=== PATIENT | male | born 1955 | race Caucasian/White ===

== ENCOUNTER 2016-03-17 11:05 | Emergency (ER) | payer MEDICAID ==
[2016-03-17 11:17] VITALS: BP 139/75
[2016-03-17 12:21] LABS: Hematocrit 49 % (42-52); Hemoglobin 17.1 g/dl (14.0-18.0); Mean Corpuscular HGB Conc 35 g/dl (31-36); Mean Corpuscular Hemoglobin 29 pg (27-31); Mean Corpuscular Volume 84 fL (80-94); Mean Platelet Volume 8 um3 (7.4-10.4); Red Blood Count 5.89 10^6/ul (4.0-5.4); Red Cell Distribution Width 13 % (10.5-15); White Blood Count 6.4 10^3/ul (3.5-10.8)
--- NOTE | 2016-03-17 12:29 | ED ---
Psychiatric Complaint - HPI Summary HPI Summary: Pt here with worsening depression. Stayed in house 4 days in a row last week. Moved here to [place] in October from [place] - was hoping for better support living here vs. [place] however feels he's not well received. Also feels political views of folks are intense - does not feel safe in the community sharing his views. H/o addiction to ETOH and cocaine. Moved here for a fresh start. Has not used since moving in October. Has tried local counselor but doesn't feel he connects with counselor. Would also like to find a support group to join for depression. Denies SI, HI. No physical complaints at this time. - History Of Current Complaint Chief Complaint: EDMentalHealth Time Seen by Provider: 03/17/16 11:25 Hx Obtained From: Patient - Allergies/Home Medications Allergies/Adverse Reactions: Allergies Allergy/AdvReac Type Severity Reaction Status Date / Time No Known Allergies Allergy Verified 03/17/16 11:16 PMH/Surg Hx/FS Hx/Imm Hx Previously Healthy: Yes Psychiatric History: Reports: Hx Anxiety - Dx at age 13, Hx Depression, Hx Inpatient Treatment - 5y and 10y ago, [place], [place], Dx Major depressive D/O, Hx Suicide Attempt - reported 2 attempt of running into traffic 5, resp. 10y ago Denies: Hx Eating Disorder, Hx of Violent Episodes Against Others Infectious Disease History: No Infectious Disease History: Denies: Traveled Outside the [place] in Last 30 Days - Social History Alcohol Use: Rare Substance Use Type: Reports: None Smoking Status (MU): Current Every Day Smoker Type: Cigarettes Review of Systems Negative: Fever, Chills Eyes: Negative ENT: Negative Negative: Chest Pain Negative: Shortness Of Breath Negative: Abdominal Pain, Vomiting, Diarrhea, Nausea Positive: no symptoms reported Musculoskeletal: Negative Skin: Negative Neurological: Negative Psychological: Other - see HPI All Other Systems Reviewed And Are Negative: Yes Physical Exam Triage Information Reviewed: Yes Vital Signs On Initial Exam: Initial Vitals Temp Pulse Resp BP Pulse Ox 97 F 89 18 139/75 97 03/17/16 11:11 03/17/16 11:11 03/17/16 11:11 03/17/16 11:11 03/17/16 11:11 Vital Signs Reviewed: Yes Appearance: Positive: Well-Appearing, No Pain Distress, Well-Nourished Skin: Positive: Warm, Dry Head/Face: Positive: Normal Head/Face Inspection Eyes: Positive: Normal, EOMI ENT: Positive: Hearing grossly normal, Pharynx normal - mucosa moist Respiratory/Lung Sounds: Positive: Clear to Auscultation, Breath Sounds Present Cardiovascular: Positive: Normal, RRR Abdomen Description: Positive: Nontender, Soft Bowel Sounds: Positive: Present Musculoskeletal: Positive: Normal, Strength/ROM Intact Neurological: Positive: Normal, Sensory/Motor Intact, Alert, Oriented to Person Place, Time, CN Intact II-III Psychiatric: Positive: Anxious - however presents his complaints clearly, well organized Diagnostics - Vital Signs Vital Signs Temp Pulse Resp BP Pulse Ox 03/17/16 11:11 97 F 89 18 139/75 97 - Laboratory Lab Results: Lab Results 03/17/16 Range/Units 12:05 WBC 6.4 (3.5-10.8) 10^3/ul RBC 5.89 H (4.0-5.4) 10^6/ul Hgb 17.1 (14.0-18.0) g/dl Hct 49 (42-52) % MCV 84 (80-94) fL MCH 29 (27-31) pg MCHC 35 (31-36) g/dl RDW 13 (10.5-15) % Plt Count 288 (150-450) 10^3/ul MPV 8 (7.4-10.4) um3 Neut % (Auto) 46.3 (38-83) % Lymph % (Auto) 39.6 (25-47) % [place] % (Auto) 10.1 H (1-9) % Eos % (Auto) 2.7 (0-6) % Baso % (Auto) 1.3 (0-2) % Absolute Neuts (auto) 3.0 (1.5-7.7) 10^3/ul Absolute Lymphs (auto) 2.5 (1.0-4.8) 10^3/ul Absolute Monos (auto) 0.7 (0-0.8) 10^3/ul Absolute Eos (auto) 0.2 (0-0.6) 10^3/ul Absolute Basos (auto) 0.1 (0-0.2) 10^3/ul Absolute Nucleated RBC 0.01 10^3/ul Nucleated RBC % 0.2 Result Diagrams: 03/17/16 12:05 03/17/16 12:05 Lab Statement: Any lab studies that have been ordered have been reviewed, and results considered in the medical decision making process. Course/Dx - Course Course Of Treatment: Pt evaluated by for depression. price analyst reports pt received information well and does not want to wait for psychiatrists recommendation as he's concerned they may keep him here. Wuld like to leave before pych dr card. Okay with plan as pt does not present as a threat to himself or others but needs to f/u w/ recommended outpt referrals provided by and return to ED if danger s/sx present. - Differential Dx/Clinical Impression Provider Diagnosis: Depression Discharge - Discharge Plan Condition: Stable Disposition: HOME Additional Instructions: Pt referred to outpt mental health services by mental health price analyst. See notes.
[2016-03-17 12:33] LABS: ALT 24 U/L (7-52); AST 26 U/L (13-39); Albumin 4.6 g/dL (3.2-5.2); Alkaline Phosphatase 81 U/L (34-104); Anion Gap 6 mmol/L (2-11); BUN/Creatinine Ratio 16.3 (8-20); Blood Urea Nitrogen 16 mg/dL (6-24); CO2 Carbon Dioxide 28 mmol/L (22-32); Calcium 10.1 mg/dL (8.6-10.3); Chloride 99 mmol/L (101-111); EGFR African American 100.7 (>60); EGFR Non-African American 78.3 (>60); Globulin 3.6 g/dL (2-4); Glucose 115 mg/dL (70-100); Sodium 133 mmol/L (133-145); Total Protein 8.2 g/dL (6.4-8.9)
[2016-03-17 13:00] LABS: Acetaminophen < 15 mcg/mL; Alcohol < 10 mg/dL (<10); Salicylate < 2.50 mg/dL (<30)
[2016-03-17 13:09] LABS: TSH (Thyroid Stimulating Horm) 2.35 mcIU/mL (0.34-5.60)
[2016-03-17 13:14] LABS: Mono Internal Control QC Line Present
[2016-03-17 13:23] LABS: Vitamin B12 430 pg/mL (180-914)
[2016-03-17 14:23] LABS: Urine Bilirubin Negative (Negative); Urine Glucose Negative (Negative); Urine Nitrite Negative (Negative)
[2016-03-17 14:39] LABS: Benzodiazepine Urine Screen None Detected (None Detect)
== END 2016-03-17 16:50 | disposition home or self-care (01) ==
LOC: ED 11:05
DX: F32.9 Major depressive disorder, single episode, unspecified (principal)
CPT/HCPCS: 36415; 80053; 80307; 80320; 80329; 81003; 82607; 84443; 85025; 86308; 99283; G0480

== ENCOUNTER 2016-06-01 13:20 | Emergency (ER) | payer MEDICAID, OTHER ==
[2016-06-01 15:40] VITALS: BP 112/78
--- NOTE | 2016-06-02 10:01 | ED ---
Headache - HPI Summary HPI Summary: Patient CHIQUITA. Patient states that when he is in his apt, he smells fumes which is thinks is CO and causing temporal CARROLL. He is on the 14th floor and states the CO rises and is causing him to have these issues. Denies previous history of CARROLL or migraines. Denies other sxs. He states when he goes outside, his symptoms improve and only occur when he is inside his apt. Today after a walk, he arrived home and immediately experienced the CARROLL and decided to call the ambulance. CO testing in his apt today was negative. His PCP is in [place] and states he will follow up with her for any additional poison testings. - History Of Current Complaint Chief Complaint: EDGeneral Stated Complaint: POSSIBLE CO POISONING Hx Obtained From: Patient Onset/Duration: Gradual Onset, Started weeks ago Initially Headache Was: Initial Pain Scale(0-10)= - 5 Currently Pain Is: Current Pain Scale(0-10)= - 5 Timing: Intermittent, Lasting:, Hours Character: Dull Location of Headache: Temporal Aggravating Factor: Other - his apartment Allevating Factors: Other (Noted In Comments) Associated Signs And Symptoms: Negative - Risk Factors SAH Risk Factors: Negative Meningitis Risk Factors: Negative SDH Risk Factors: Male Temporal Arteritis Risk Factors: Negative - Allergies/Home Medications Allergies/Adverse Reactions: Allergies Allergy/AdvReac Type Severity Reaction Status Date / Time No Known Allergies Allergy Verified 03/17/16 11:16 PMH/Surg Hx/FS Hx/Imm Hx Previously Healthy: Yes Psychiatric History: Reports: Hx Anxiety - Dx at age 13, Hx Depression, Hx Inpatient Treatment - 5y and 10y ago, [place], [place], Dx Major depressive D/O, Hx Suicide Attempt - reported 2 attempt of running into traffic 5, resp. 10y ago Denies: Hx Eating Disorder, Hx of Violent Episodes Against Others - Immunization History Hx Pertussis Vaccination: No Immunizations Up to Date: No Infectious Disease History: No Infectious Disease History: Denies: Traveled Outside the US in Last 30 Days - Social History Occupation: Unemployed Lives: Alone Alcohol Use: Rare Substance Use Type: Reports: None Smoking Status (MU): Never Smoked Tobacco Review of Systems Constitutional: Negative Eyes: Negative Cardiovascular: Negative Respiratory: Negative Positive: no symptoms reported, see HPI Musculoskeletal: Negative Skin: Negative Positive: Headache Psychological: Normal All Other Systems Reviewed And Are Negative: Yes Physical Exam Triage Information Reviewed: Yes Vital Signs On Initial Exam: Initial Vitals Temp Pulse Resp BP Pulse Ox 97.2 F 77 16 124/85 100 06/01/16 13:25 06/01/16 13:25 06/01/16 13:25 06/01/16 13:25 06/01/16 13:25 Vital Signs Reviewed: Yes Appearance: Positive: Well-Appearing, No Pain Distress, Well-Nourished Skin: Positive: Skin Color Reflects Adequate Perfusion Eyes: Positive: EOMI, Conjunctiva Clear ENT: Positive: Normal ENT inspection, Pharynx normal, TMs normal Neck: Positive: Supple, No Lymphadenopathy Respiratory/Lung Sounds: Positive: Clear to Auscultation, Breath Sounds Present Cardiovascular: Positive: Normal, RRR Musculoskeletal: Positive: Normal, Strength/ROM Intact Neurological: Positive: Sensory/Motor Intact, Speech Normal Psychiatric: Positive: Anxious AVPU Assessment: Alert - [place] Coma Scale Best Eye Response: 4 - Spontaneous Best Motor Response: 6 - Obeys Commands Best Verbal Response: 5 - Oriented Diagnostics - Vital Signs Vital Signs Temp Pulse Resp BP Pulse Ox 06/01/16 15:38 98.8 F 78 18 112/78 06/01/16 13:40 98.8 F 70 16 120/79 99 06/01/16 13:25 97.2 F 77 16 124/85 100 - Laboratory Lab Results: Lab Results 06/01/16 Range/Units 14:10 Carbon Monoxide Screen <3.5 (<3.5) % Lab Statement: Any lab studies that have been ordered have been reviewed, and results considered in the medical decision making process. Headache Course/Dx - Course Course Of Treatment: Patient BIBA for possible CO poisoning. Patient experiencing temporal CARROLL's bilaterally only when he is in his apt and feels it is because there is excess CO in the building. CO was tested in his apt and negative. He comes in today for a blood test for poisoning. CO was WNL and negative for elevated levels. patient made aware and denies other symptoms. Encouraged to follow up with PCP for further evaluation of CARROLL. Patient agrees and is OK for discharge. - Diagnoses Differential Diagnosis/HQI/PQRI: CO2 Poisoning, Migraine, Tension Headache Provider Diagnoses: CARBON MONOXIDE POISONING Discharge - Discharge Plan Condition: Stable Disposition: HOME Patient Education Materials: Carbon Monoxide Poisoning (ED) Referrals: No Primary Care Phys,NOPCP [Primary Care Provider] - Additional Instructions: I am not diagnosing you with CO poisoning, however, I wanted to give you information. Please follow up with your PCP about the gnosticism headaches. You may need further evaluation. If symptoms become worse, come back to ED.
== END 2016-06-01 15:38 | disposition home or self-care (01) ==
LOC: ED 13:20
DX: T58.94XA Toxic effect of carbon monoxide from unspecified source, undetermined, initial encounter (principal); Y92.039 Unspecified place in apartment as the place of occurrence of the external cause
CPT/HCPCS: 36415; 82375; 99282

== ENCOUNTER 2016-07-15 09:16 | Emergency (ER) | payer OTHER ==
--- NOTE | 2016-07-15 10:04 | ED ---
Shortness of Breath - HPI Summary HPI Summary: 60M presents with SOB at home. He states that he is only SOB at his home and believes it is due to the area quality in his apartment. He denies any chest pain. He states that is worst with excretion. Has history of recurrent bronchitis and one type had pneumonia. He has had a dry cough for many months. He states he has been having this SOB at home for many months since he moved here from [place]. He gave extensive reasons why the air quality is bad in his apartment complex. He did have a primary but the primary was not helping with the issue so he left the practice. He was a smoker and quit 5 years ago and spoke a pack a week for 17 years. He has never been evaluated for COPD before. He admits to sinus congestion. He denies any fever, abdominal pain, n/v/d or sore throat. He was able to ambulate into room and met ambulance outside and does not feel SOB now. - History of Current Complaint Chief Complaint: EDShortnessOfBreath Time Seen by Provider: 07/15/16 09:26 - Allergy/Home Medications Allergies/Adverse Reactions: Allergies Allergy/AdvReac Type Severity Reaction Status Date / Time No Known Allergies Allergy Verified 03/17/16 11:16 PMH/Surg Hx/FS Hx/Imm Hx Endocrine/Hematology History: Denies: Hx Anticoagulant Therapy Cardiovascular History: Denies: Hx Hypertension Respiratory History: Denies: Hx Asthma, Hx Chronic Obstructive Pulmonary Disease (COPD) Psychiatric History: Reports: Hx Anxiety - Dx at age 13, Hx Depression, Hx Inpatient Treatment - 5y and 10y ago, [place], [place], Dx Major depressive D/O, Hx Suicide Attempt - reported 2 attempt of running into traffic 5, resp. 10y ago Denies: Hx Eating Disorder, Hx of Violent Episodes Against Others Infectious Disease History: No Infectious Disease History: Denies: Traveled Outside the US in Last 30 Days - Family History Known Family History: Positive: Cardiac Disease - Social History Alcohol Use: Rare Substance Use Type: Reports: None Smoking Status (MU): Never Smoked Tobacco Review of Systems Negative: Fever Negative: Chest Pain Positive: Shortness Of Breath, Cough Negative: Abdominal Pain All Other Systems Reviewed And Are Negative: Yes Physical Exam Triage Information Reviewed: Yes Vital Signs On Initial Exam: Initial Vitals Temp Pulse Resp BP Pulse Ox 98.5 F 66 20 117/75 97 05/29/17 09:20 07/15/16 09:20 07/15/16 09:20 07/15/16 09:20 07/15/16 09:20 Vital Signs Reviewed: Yes Appearance: Positive: Well-Appearing Skin: Positive: Warm, Dry Head/Face: Positive: Normal Head/Face Inspection Eyes: Positive: Normal, Conjunctiva Clear ENT: Positive: Normal ENT inspection, Pharynx normal, TMs normal Neck: Positive: Supple, Nontender, No Lymphadenopathy Respiratory/Lung Sounds: Positive: Clear to Auscultation, Breath Sounds Present Cardiovascular: Positive: Normal, RRR Abdomen Description: Positive: Nontender, Soft Bowel Sounds: Positive: Present Musculoskeletal: Negative: Edema Left, Edema Right - [place] Coma Scale Coma Scale Total: 15 Diagnostics - Vital Signs Vital Signs Temp Pulse Resp BP Pulse Ox 07/15/16 09:20 98.5 F 66 20 117/75 97 - Laboratory Result Diagrams: 07/15/16 10:02 07/15/16 10:02 Lab Statement: Any lab studies that have been ordered have been reviewed, and results considered in the medical decision making process. - Radiology chest Xray Interpretation: No Acute Changes Radiology Interpretation Completed By: Radiologist - EKG 1 Cardiac Rate: NL EKG Rhythm: Sinus Rhythm Course/Dx - Course Course Of Treatment: 60M prsents with SOB for many months that only occurs in apartment or with excretion. states air quality in apartment is poor. was a former smoker. denies any chest pain. denies any SOB currently. patient walked into ED, O2 on room air 97. lungs CTA. chest xray and EKG normal. normal troponin and d-dimer. suspect has COPD. gave inhaler and told to est care with primary. patient understands and agrees with plan - Diagnoses Differential Diagnosis/HQI/PQRI: Positive: Bronchitis, COPD Exacerbation, Pneumonia, Pulmonary Embolism Provider Diagnoses: Shortness of breath Discharge - Discharge Plan Condition: Good Disposition: HOME Prescriptions: Albuterol HFA INHALER* [Ventolin HFA Inhaler*] 1 puff INH Q6H PRN #1 mdi PRN Reason: Shortness Of Breath Fluticasone NASAL SPRAY 50MCG* [Flonase NASAL SPRAY 50MCG*] 1 spray BOTH NARES DAILY #1 btl Patient Education Materials: Dyspnea (ED) Referrals: [facility] [Outside] Meghna Hudson MD [Medical Doctor] - Additional Instructions: Use inhaler for SOB every 6 hours Use flonase one spray each nostril daily as needed for nasal congestion Establish care with primary care physician to get worked up for asthma/COPD Return to ED if develop any new or worsening symptoms
[2016-07-15 10:12] LABS: Hematocrit 44 % (42-52); Mean Corpuscular HGB Conc 34 g/dl (31-36); Mean Corpuscular Hemoglobin 29 pg (27-31); Mean Corpuscular Volume 85 fL (80-94); Mean Platelet Volume 8 um3 (7.4-10.4); Red Blood Count 5.14 10^6/ul (4.0-5.4); Red Cell Distribution Width 13 % (10.5-15); White Blood Count 6.5 10^3/ul (3.5-10.8)
[2016-07-15 10:29] LABS: Albumin 4.1 g/dL (3.2-5.2); BUN/Creatinine Ratio 21.2 (8-20); Calcium 9.5 mg/dL (8.6-10.3); EGFR African American 118.7 (>60); EGFR Non-African American 92.3 (>60); Globulin 3.1 g/dL (2-4); Potassium 3.8 mmol/L (3.5-5.0); Total Bilirubin 0.9 mg/dL (0.2-1.0); Total Protein 7.2 g/dL (6.4-8.9)
[2016-07-15 10:31] LABS: Troponin I 0.01 ng/mL (<0.04)
--- NOTE | 2016-07-15 10:34 | RAD ---
INDICATION: Short of breath COMPARISON: November 04, 2014 TECHNIQUE: PA and lateral dual-energy views were obtained. FINDINGS: Bones/Soft Tissues: There are no acute bony findings. Cardiomediastinal: The cardiomediastinal silhouette is normal. Lungs: There are no infiltrates. Pleura: There are no pleural effusions. Other: None IMPRESSION: NO ACTIVE DISEASE.
[2016-07-15 11:40] VITALS: BP 114/72
== END 2016-07-15 11:39 | disposition home or self-care (01) ==
LOC: ED 09:16
DX: R06.02 Shortness of breath (principal); F32.9 Major depressive disorder, single episode, unspecified
CPT/HCPCS: 36415; 71020; 80053; 83605; 83880; 84484; 85025; 85379; 93005; 99283